=== PATIENT | female | born 1975 | race African-American/Black ===

== ENCOUNTER 2022-09-13 13:00 | Outpatient (RCR) | payer OTHER, SELFPAY ==
--- NOTE | 2022-07-05 13:14 | PTOPEVAL1 ---
Assessment and note entered by Lesa Mora DPT Evaluation Information Assessment Status Evaluation Subjective Information Pt reports difficulty holding her bladder and diagnosed with a prolapse. Urine leakage daily. Urinates 6-7 times in a day and 3 more times at night. Getting urge incontinence multiple times a day. Volume is enough to have to change her underwear. Denies pain with urination. BM 3 times a day, no pain. Also reports a history of pelvic pain, has not had any for about 6 years. Had a hysterectomy 6 years ago. Cyst removal in 1995. Also feels like her bladder is falling through when she sits down. Pt has been 4 times, 4 deliveries all vaginal. No complications. Also has a history of bed wetting as a child until approximately 10-11 years, took medicine but unsure what kind. No return visit scheduled to MD. Patient goal: be able to control her bladder, not have to use pads. Pt reports frustration about her incontinence and that she avoids a lot of fluids especially water in order to decrease leaking. Reported Pain Level Pain Score 0: Self Report Assessment PT Clinical Summary The patient is presenting to skilled therapy with a history of urinary incontinence and cystocele. She presents with decreased pelvic floor strength and endurance as well as decreased core strength which are contributing to her daily incontinence and prolapse. She will highly benefit from therapy to address these impairments and safely reduce incontinence and symptoms of prolapse. Plan of Care Interventions Manual Therapy,Neuro Re-education,Patient/ Caregiver Education,Therapeutic Activities, Therapeutic Exercise,Self-Care/Home Management PT Services Indicated Yes Treatment Frequency and 1 time a week for 4 weeks Duration These treatments will address the objective and functional deficits as defined above. The patient will be advanced safely and appropriately in order for the patient to progress towards his/her prior level of function. Additional exercises will be introduced and as well as a comprehensive home exercise program upon discharge, if needed, ?to ensure carryover of functional gains achieved in the clinic. This treatment plan has been reviewed and agreement upon by the patient.
--- NOTE | 2022-08-04 10:31 | PTOPPROG ---
Assessment and note entered by Lesa Mora DPT Evaluation Information Assessment Status Progress Subjective Information Pt reports with therapy she is feeling better, can hold and control her bladder more. In the last week still has had incontinence daily but not as often per day. Volume can be variable depending on time of day and fluid intake. Assessment PT Clinical Summary The patient has made good progress in therapy. She demonstrates improved pelvic floor strength, and improved hip and core strength. She reports a decreased frequency of incontinence but continues to have incontinence daily. She will benefit from further therapy to address strength and continue reducing frequency and volume of incontinence. Plan of Care Interventions Manual Therapy,Neuro Re-education,Patient/ Caregiver Education,Therapeutic Activities, Therapeutic Exercise PT Services Indicated Yes Treatment Frequency and 1 visit every other week for 3 visits Duration These treatments will address the objective and functional deficits as defined above. The patient will be advanced safely and appropriately in order for the patient to progress towards his/her prior level of function. Additional exercises will be introduced and as well as a comprehensive home exercise program upon discharge, if needed, ?to ensure carryover of functional gains achieved in the clinic. This treatment plan has been reviewed and agreement upon by the patient.
--- NOTE | 2022-09-13 13:29 | PTOPDC ---
Assessment and note entered by Lesa Mora DPT Evaluation Information Assessment Status Discharge Subjective Information Pt reports she continues to feel improvement with therapy. May have a few minor drops a few times a week in the morning, not enough to need to use a pad or anything. Feels confident with discharge this visit. Reported Pain Level Pain Score 0: Self Report Assessment PT Clinical Summary The patient has made excellent progress in therapy . She reports greatly decreased urinary incontinence and displays overall improved strength. Due to her progress, plan to discharge this visit with thorough HEP. Pt has been educated to follow up with MD and/or PT as needed. Plan of Care PT Services Indicated No
== END 2022-09-15 08:33 | disposition home or self-care (01) ==
LOC: ANHGOSHPT 13:00
PROVIDERS: Visit Provider Physician Assistant
DX: N81.10 Cystocele, unspecified (principal)
CPT/HCPCS: 97110; 97112; 97161